=== PATIENT | female | born 1935 | race Caucasian/White ===

== ENCOUNTER → 2016-05-04 | Day surgery (SDC) | payer BC ==
[2016-05-03 14:17] VITALS: BMI 31.0
[~2016-05-04] VITALS: Ht 154.9 cm; Wt 74.1 kg
[~2016-05-04] MED LIST: ADVIN25/60 INH; ASPI-232 PO; ATOR-26 PO; ATROPINE SULFATE 0.1 MG/ML 5ML SYR IV PRN; CALC-20 PO; CYCL0.052 OP; DILT360C17 PO; ELQ25 PO; ETOMIDATE 2 MG/ML 20 ML VIAL IV ONE; EpHEDrine SULFATE INJ 50 MG/ML AMP IV PRN; FENTANYL CITRATE INJ 50 MCG/1 ML 2 ML VIAL IV PRN; FENTANYL CITRATE INJ 50 MCG/1 ML 2 ML VIAL ONE; FRRS300 PO; FURO80TA63 PO; HEPARIN SOD (PORCINE) 1000 UNIT/ML 10 ML VIAL FLUSH ONE; HEPARIN SQ; INSDGI SQ; LEVO112T4 PO; MECL1TAB42 PO; METO50TA16 PO; MIX: 0.5% BUPIVACAINE W/EPI 1:200,000+1%LIDO 50:50 INJ ONE; MRLP17 PO; NTRGSL/4 UT; ONDA8TAB6 PO; ONDANSETRON INJ 2 MG/ML 2 ML VIAL IV PRN; ONDANSETRON INJ 2 MG/ML 2 ML VIAL ONE; OXYC-57 PO; PATIENT'S HEIGHT AND/OR WEIGHT NEEDED SCH; PRLSR20 PO; PROPOFOL IV EMULSION 10 MG/ML 20 ML VIAL IV ONE; SODIUM CHLORIDE 0.9% 1000ML 1,000 ML IV SCH; SPRIN INH; SURGICEL ABSORB HEMOSTAT 2IN X 14IN TOP ONE; VNTHFA/IN INH
[2016-05-04 05:59] VITALS: BP 101/46; PULSE 91; TEMP 36.7; O2SAT 99; Ht 154.9 cm; Wt 74.1 kg
--- NOTE | 2016-05-04 06:03 | History and Physical ---
History & Physical CC: End stage renal disease HPI: Ms. Harrington states that she has had worsening renal function over the past 1-2 years and was advised to have her fistula created for hemodialysis in the near future. She states that her kidneys are currently functioning at 15%. She denies any real complaints at this time and states that she is feeling generally well. She specifically denies headaches, fevers, chills, dizziness, chest pain, shortness of breath, any worse than usual, abdominal pain, nausea, vomiting, dysuria, hematuria, rest pain, claudication, nonhealing wounds or ulcers or other complaints. The ultrasound vein mapping performed of her bilateral upper extremities prior to today's appointment demonstrates usable basilic veins in her right upper extremity. She had a right basilic vein fistula created and now is admitted for transposition. THE PATIENT'S ALLERGIES INCLUDE PIERCE INHIBITORS, SULFA DRUGS AND TETRACYCLINE. Her home medications are reconciled in the chart and include the following: Acetaminophen/hydrocodone, Advair Diskus, apixaban, aspirin, calcium, diltiazem , Feosol, furosemide, Lantus SoloSTAR pen, levothyroxine oral tablets, Lipitor, meclizine, metoprolol, Percocet 5/325, pilocarpine, Prilosec, promethazine, Spiriva, Ventolin and Zofran. Her past medical history is positive for aortic valve stenosis status post aortic valve replacement, coronary artery disease, hypertension, diabetes, NE, carotid artery stenosis, chronic kidney disease stage IV, COPD, hyperlipidemia, paroxysmal atrial fibrillation, vitamin D deficiency, chronic anemia. The patient's past surgical history is positive for transcatheter aortic valve replacement with prosthetic valve, lower extremity angiography, appendectomy, section, cholecystectomy, tonsillectomy, cardiac catheterization, colonoscopy, carotid endarterectomy. FAMILY HISTORY: Positive for diabetes in her brother, father, sister and mother ; heart disease in her father, mother and sister; hypertension in her brother, father, mother and sister; lung cancer in her sister, and stroke in her father. SOCIAL HISTORY: The patient states that she used to smoke 40 cigarettes a day, but has since quit. She quit smoking 20 years ago. REVIEW OF SYSTEMS: Positive for fatigue. She denies fevers, chills or weight loss, abnormal moles or rashes, vision changes or photophobia, ear pain, sinus problems or sore throat, or hemoptysis. She does admit wheezing, chronic cough and chronic shortness of breath. She is on oxygen by nasal cannula. She admits edema of her bilateral lower extremities, but denies orthopnea or chest pain. She denies abdominal pain, nausea, vomiting, diarrhea, constipation, dysuria, hematuria, muscle weakness, headaches, dizziness, numbness or seizures. PHYSICAL EXAMINATION: Her vital signs today were as follows: Blood pressure 104/50 in the left arm, heart rate is 68, oxygen 96% on room air, height of 154 cm, weight of 80 kg. Constitutional: In general, the patient is a chronically ill, frail-appearing elderly female, in no acute distress. She wears oxygen via nasal cannula. Her voice is very hoarse sounding and frail. She is active , alert and oriented x4 with normal recent and remote memory. Her head is normocephalic and atraumatic. Eyes are EOMI. Her ENT exam demonstrates some hearing loss. She does use hearing aids, but hears fine with them in. Her neck is supple and nontender with midline trachea without masses or crepitus. Her lung exam demonstrates no dyspnea with significantly decreased aeration and mild expiratory wheezing. There are no crackles or rales noted. Cardiovascular exam demonstrates a nondisplaced apical impulse. She does have an irregular rhythm. She does have a 2/6 systolic ejection murmur. Her peripheral pulses are full and equal in all extremities unless otherwise noted, specifically they are normal in her carotid, brachial, radial and femoral pulses. Her bilateral extremity distal pulses are +2. She has brisk capillary refill and no sign of distal ischemia. The patient demonstrates no bruits in her carotid, abdominal or femoral area. Her abdomen is soft and nontender with normoactive bowel sounds in all 4 quadrants without guarding or rebound. There is no flank or CVA tenderness. I am unable to appreciate any pulsatile mass. Her musculoskeletal exam demonstrates normal tone and strength for age. Her bilateral upper extremities demonstrate no cyanosis, edema, clubbing, varicosities or ulcerations. There is a good thrill in the right upper extrmeity fistula. Bilateral lower extremities demonstrate +2 edema bilaterally. This is diffuse from the knee down pretibial and pitting. Neurologically, the patient demonstrates grossly intact cranial nerves and grossly intact sensation. ASSESSMENT AND PLAN: End-stage renal disease. Plan: Patient is admitted for transposition of a right upper arm basilic vein arteriovenous fistula. The procedure, risks, benefits and alternatives were discussed at length with the patient. Her family member was present as well. She expressed understanding and agreement to .
--- NOTE | 2016-05-04 07:21 | History & Physical Bridge Note ---
H&P Re-Evaluation Bridge Note: I have examined the patient, reviewed the History & Physical and in the interval since the performance of the History & Physical I have noted the following changes of clinical significance: No changes noted
[2016-05-04 07:27] LABS: BUN/CREATININE RATIO 26.9 (10-20); CALCIUM 8.6 mg/dl (8.5-10.1); CREATININE 2.3 mg/dl (0.60-1.20); POTASSIUM 4.7 mmol/L (3.5-5.1)
[2016-05-04] MEDS: CEFAZOLIN 1000MG/55 ML D5W IV SCH ×2 (07:33→07:56)
--- NOTE | 2016-05-04 09:10 | [facility] Post Operative Brief Note ---
Immediate Operative Summary Operative Date May 04, 2016. Pre-Operative Diagnosis End Stage Renal Disease Post-Operative Diagnosis Same as preoperative Procedure(s) Performed Right Upper Extremity Basilic Vein Transposition Surgeon Dr. Alexander Natural Resource Economist Surgeon(s) Nicol Caba PA-C Estimated Blood Loss 100 Findings good thrill Specimens None per surgeon Anesthesia MAC Complication(s) None Disposition Recovery Room / PACU
--- NOTE | 2016-05-04 09:15 | Discharge Instructions ---
Discharge Instructions Visit Reason for Visit: End Stage Renal Disease Discharge Discharge Diagnosis / Problem: End stage renal disease Discharge Goals Goal(s): Therapeutic intervention Activity Recommendations Activity Limitations: per Instructions/Follow-up section Anesthesia . Post Anesthesia Instructions: If you have had General Anesthesia or IV Sedation: * Do not drive today. * Resume driving when surgeon permits. * Do not make important decisions or sign legal documents today. * Call surgeon for: 1. Temperature elevations greater than 101 degrees F. 2. Uncontrollable pain. 3. Excessive bleeding. 4. Persistent nausea and vomiting. 5. Medication intolerance (nausea, vomiting or rash). * For nausea and vomiting use only clear liquids such as: tea, soda, bouillon until nausea subsides, then gradually increase diet as tolerated. * If you have any concerns or questions, call your surgeon's office. If physician is unavailable and it is an emergency, call 911 or go to the nearest emergency room. . Instructions / Follow-Up Instructions / Follow-Up Call [phone] to schedule a follow up appointment if one not already scheduled. ACTIVITY RECOMMENDATIONS: See Above SPECIAL CARE INSTRUCTIONS: Call your doctor if: * Temperature above 101 degrees * Pain not relieved by pain medicine ordered * There is increased drainage or redness from any incision * You have any unanswered questions or concerns. Diet Recommendations Recommended Home Diet: resume previous diet Procedures Procedures Performed: Right Upper Extremity Basilic Vein Transposition Pending Studies Studies pending at discharge: no Medical Emergencies . Who to Call and When: Medical Emergencies: If at any time you feel your situation is an emergency, please call 911 immediately. . Non-Emergent Contact Non-Emergency issues call your: Surgeon . . "Provider Documentation" section prepared by Lalo Alexander.
--- NOTE | 2016-05-04 09:57 | Anesthesiology Progress Note ---
Anesthesia Post Op Note Date & Time May 04, 2016 at 09:56 Vital Signs Pain Intensity: 0 Vital Signs Past 12 Hours Date Time Temp Pulse Resp B/P Pulse Ox O2 Delivery O2 Flow Rate FiO2 05/04/16 09:50 79 20 108/37 96 Nasal Cannula 4 05/04/16 09:40 78 20 113/43 95 Nasal Cannula 4 05/04/16 09:36 36.2 85 16 113/53 97 Nasal Cannula 4 05/04/16 05:59 36.7 91 20 101/46 99 Nasal Cannula 2 Notes Mental Status: alert / awake / arousable, participated in evaluation Pt Amnestic to Procedure: Yes Nausea / Vomiting: adequately controlled Pain: adequately controlled Airway Patency, RR, SpO2: stable & adequate BP & HR: stable & adequate Hydration State: stable & adequate Anesthetic Complications: no major complications apparent
--- NOTE | 2016-05-04 10:07 | OPERATIVE REPORT ---
DATE OF OPERATION: 05/04/2016 PREOPERATIVE DIAGNOSIS: End-stage renal disease post-basilic vein fistula creation. POSTOPERATIVE DIAGNOSIS: Same. PROCEDURE: Right basilic vein transposition second stage. SURGEON: Dr. Alexander. CRINKLING MACHINE OPERATOR: Nicol Benavides PA-C. ANESTHETIC: MAC. PROCEDURE INDICATIONS: The patient is an 81-year-old female who had a right upper extremity basilic vein transposition done. The vein has matured nicely. She is here for second stage transposition. She understood the risks, options and benefits and agreed to go ahead with this procedure. PROCEDURE: The patient was taken to the operating room and placed in supine position. After the right arm was prepped and draped in a sterile manner, local anesthetic was administered. Long longitudinal incision was made coursing along the basilic vein from the old incision at the antecubital crease up to the anterior axillary line. The basilic vein was identified at the antecubital fossa. It was followed upward. There were nerves crossing which were preserved. Dissection was carried up to the basilic junction. Once this was identified, the side branches were all ligated. It was decided to transect the vein just distal to the arterial anastomosis. This was done after the vein was clamped with DeBakey clamps. A subcutaneous tunnel was then made. Using the tunneler the vein was passed through the tunnel. Care was taken not to twist or kink the vein. Once it was passed through it was checked by dilating it. It dilated up nicely. No kinks were seen. The vein was then anastomosed to the stump of the vein from the arterial anastomosis in an end-to-end fashion with a running 7-0 Prolene suture. Once this was completed, clamps were removed. Excellent flow was seen through the fistula. Adequate hemostasis was seen of the wounds. The tunnel was slightly repositioned suturing the muscle fascia for the subcutaneous layer in the upper part of the arm. This extended the tunnel slightly. The wound was then closed in the usual fashion using a running 3-0 Vicryl suture for the subcutaneous layer and keturah for the skin. Sterile dressings were then applied to the wound. The patient left the operating room in good condition and tolerated the procedure well. Nicol Benavides assisted due to lack of resident availability. I attest to the content of the Intraoperative Record and any orders documented therein. Any exceptions are noted below. MTDD
[2016-05-04 10:10] VITALS: BP 119/42; PULSE 68; TEMP 36.6; O2SAT 93
[2016-05-04 10:43] VITALS: BP 112/51; PULSE 76; TEMP 36.5; O2SAT 93
[2016-05-04 11:13] VITALS: BP 118/51; PULSE 74; TEMP 36.5; O2SAT 95
--- NOTE | 2016-05-04 15:32 | Progress Note ---
Progress Note I assisted Dr Alexander with Maria Antonia Harrington's Right Upper Extremity Basilic Vein Transposition on 05/04/16, d/t lack of resident availability.
== END | disposition home or self-care (01) ==
LOC: C.ACU 05:19
PROVIDERS: ATTEND Surgery Vascular Surgery
DX: N18.6 End stage renal disease (principal); E11.22 Type 2 diabetes mellitus with diabetic chronic kidney disease; I12.0 Hypertensive chronic kidney disease with stage 5 chronic kidney disease or end stage renal disease; J44.9 Chronic obstructive pulmonary disease, unspecified; I25.10 Atherosclerotic heart disease of native coronary artery without angina pectoris; E78.5 Hyperlipidemia, unspecified; I48.0 Paroxysmal atrial fibrillation; Z88.2 Allergy status to sulfonamides; Z88.1 Allergy status to other antibiotic agents; Z95.2 Presence of prosthetic heart valve; Z79.82 Long term (current) use of aspirin; Z87.891 Personal history of nicotine dependence; Z83.3 Family history of diabetes mellitus; Z82.49 Family history of ischemic heart disease and other diseases of the circulatory system; Z80.1 Family history of malignant neoplasm of trachea, bronchus and lung; Z82.3 Family history of stroke

== ENCOUNTER → 2016-06-24 | Outpatient (CLI) | payer BC ==
[~2016-06-24] MED LIST changes: -ATROPINE SULFATE 0.1 MG/ML 5ML SYR IV PRN; -ETOMIDATE 2 MG/ML 20 ML VIAL IV ONE; -EpHEDrine SULFATE INJ 50 MG/ML AMP IV PRN; -FENTANYL CITRATE INJ 50 MCG/1 ML 2 ML VIAL IV PRN; -FENTANYL CITRATE INJ 50 MCG/1 ML 2 ML VIAL ONE; -HEPARIN SOD (PORCINE) 1000 UNIT/ML 10 ML VIAL FLUSH ONE; -MIX: 0.5% BUPIVACAINE W/EPI 1:200,000+1%LIDO 50:50 INJ ONE; -ONDANSETRON INJ 2 MG/ML 2 ML VIAL IV PRN; -ONDANSETRON INJ 2 MG/ML 2 ML VIAL ONE; -PATIENT'S HEIGHT AND/OR WEIGHT NEEDED SCH; -PROPOFOL IV EMULSION 10 MG/ML 20 ML VIAL IV ONE; -SODIUM CHLORIDE 0.9% 1000ML 1,000 ML IV SCH; -SURGICEL ABSORB HEMOSTAT 2IN X 14IN TOP ONE
[2016-06-24 13:31] LABS: HEMATOCRIT 35.1 % (37-47); MEAN CELL VOLUME 93.9 fL (80-100); MEAN CORPUSCULAR HEMOGLOBIN 28.9 pg (25-34); MEAN CORPUSCULAR HGB CONC 30.8 g/dl (32-36); PLATELET COUNT 161 K/uL (130-400); RED BLOOD COUNT 3.74 M/uL (4.2-5.4); WHITE BLOOD COUNT 6.38 K/uL (4.8-10.8)
[2016-06-24 13:47] LABS: ALT/SGPT 18 U/L (12-78); BLOOD UREA NITROGEN 78 mg/dl (7-18); BUN/CREATININE RATIO 28.9 (10-20); CALCIUM 9.4 mg/dl (8.5-10.1); CARBON DIOXIDE 37 mmol/L (21-32); CHLORIDE 97 mmol/L (98-107); GLUCOSE 153 mg/dl (70-99); SODIUM 139 mmol/L (136-145)
[2016-06-24 13:50] LABS: ALB/GLOB RATIO 1.1 (0.9-2); ALKALINE PHOSPHATASE 51 U/L (45-117); AST/SGOT 17 U/L (15-37)
== END | disposition home or self-care (01) ==
LOC: C.LABMFLN 07:48
PROVIDERS: ATTEND Internal Medicine Nephrology
DX: N18.4 Chronic kidney disease, stage 4 (severe) (principal)

== ENCOUNTER → 2016-07-01 | Outpatient (CLI) | payer BC ==
[2016-07-01 09:13] LABS: PATIENT HEIGHT 154.9 cm
[2016-07-01 13:15] LABS: MEAN CELL VOLUME 92.5 fL (80-100); MEAN CORPUSCULAR HGB CONC 31.4 g/dl (32-36); MEAN PLATELET VOLUME 11.4 fL (7.4-10.4); PLATELET COUNT 171 K/uL (130-400); RED BLOOD COUNT 3.89 M/uL (4.2-5.4); WHITE BLOOD COUNT 4.35 K/uL (4.8-10.8)
[2016-07-01 13:29] LABS: BUN/CREATININE RATIO 36.4 (10-20); CALCIUM 9.9 mg/dl (8.5-10.1); CREATININE 2.7 mg/dl (0.60-1.20); PHOSPHORUS 4.7 mg/dl (2.5-4.9); POTASSIUM 3.7 mmol/L (3.5-5.1)
[2016-07-01 13:34] LABS: HEPATITIS B AB NEG
[2016-07-01 13:44] LABS: URINE TOTAL PROTEIN 5.8 mg/dl (0-11.9)
[2016-07-01 13:56] LABS: CREATININE 2.7 mg/dl (0.6-1.2); URINE TOTAL PROTEIN CALC 60.9 mg/24 hr (0-149.1)
== END | disposition home or self-care (01) ==
LOC: C.LABMFLN 07:44
PROVIDERS: ATTEND Internal Medicine Nephrology
DX: I10 Essential (primary) hypertension (principal); N18.4 Chronic kidney disease, stage 4 (severe); E55.9 Vitamin D deficiency, unspecified; D64.9 Anemia, unspecified

== ENCOUNTER → 2016-08-03 | Outpatient (CLI) | payer BC ==
[2016-08-03 13:31] LABS: ALT/SGPT 17 U/L (12-78); BLOOD UREA NITROGEN 135 mg/dl (7-18); BUN/CREATININE RATIO 50.1 (10-20); CALCIUM 9.6 mg/dl (8.5-10.1); CARBON DIOXIDE 39 mmol/L (21-32); CHLORIDE 94 mmol/L (98-107); CHOLESTEROL 143 mg/dl (0-200); GLUCOSE 82 mg/dl (70-99); POTASSIUM 3.6 mmol/L (3.5-5.1); SODIUM 143 mmol/L (136-145)
[2016-08-03 13:36] LABS: ESTIMATED AVERAGE GLUCOSE 105 mg/dl; HA1C FLAG Normal (Normal)
[2016-08-03 13:42] LABS: ALB/GLOB RATIO 1.2 (0.9-2); ALKALINE PHOSPHATASE 48 U/L (45-117); AST/SGOT 13 U/L (15-37); CHOLESTEROL/HDL RATIO 3.8; HDL CHOLESTEROL 38 mg/dl; LDL CHOLESTEROL CALCULATED 72 mg/dl; PHOSPHORUS 4.9 mg/dl (2.5-4.9); TRIGLYCERIDES 163 mg/dl (0-150); VERY LOW DENSITY LIPOPROT CALC 33 mg/dl
== END | disposition home or self-care (01) ==
LOC: C.LABMFLN 07:41
PROVIDERS: ATTEND Physician Assistant Medical
DX: I12.9 Hypertensive chronic kidney disease with stage 1 through stage 4 chronic kidney disease, or unspecified chronic kidney disease (principal); E11.22 Type 2 diabetes mellitus with diabetic chronic kidney disease; N18.4 Chronic kidney disease, stage 4 (severe); E78.2 Mixed hyperlipidemia; E03.9 Hypothyroidism, unspecified; Z79.4 Long term (current) use of insulin

== ENCOUNTER → 2016-08-29 | Outpatient (CLI) | payer BC ==
[2016-08-29 13:14] LABS: HEMATOCRIT 33.7 % (37-47); MEAN CELL VOLUME 93.9 fL (80-100); MEAN CORPUSCULAR HEMOGLOBIN 28.7 pg (25-34); MEAN CORPUSCULAR HGB CONC 30.6 g/dl (32-36); MEAN PLATELET VOLUME 11.5 fL (7.4-10.4); PLATELET COUNT 149 K/uL (130-400); RED BLOOD COUNT 3.59 M/uL (4.2-5.4); WHITE BLOOD COUNT 5.13 K/uL (4.8-10.8)
[2016-08-29 13:35] LABS: CALCIUM 10.2 mg/dl (8.5-10.1)
[2016-08-29 13:40] LABS: URINE PROTIEN/CREAT RATIO 0.1 (0-0.2); URINE TOTAL PROTEIN 6.8 mg/dl (0-11.9)
[2016-08-29 13:43] LABS: BLOOD UREA NITROGEN 126 mg/dl (7-18); BUN/CREATININE RATIO 50.4 (10-20); CARBON DIOXIDE 36 mmol/L (21-32); CHLORIDE 98 mmol/L (98-107); GLUCOSE 140 mg/dl (70-99); MAGNESIUM 2.5 mg/dl (1.8-2.4); POTASSIUM 3.6 mmol/L (3.5-5.1); SODIUM 143 mmol/L (136-145)
[2016-08-29 13:45] LABS: URINE APPEARANCE CLEAR (CLEAR); URINE BILIRUBIN NEG (NEG); URINE COLOR YELLOW; URINE NITRITE NEG (NEG); URINE PH 6.5 (4.5-7.5); UROBILINOGEN NEG (NEG)
[2016-08-29 13:52] LABS: MANUAL MICROSCOPIC REQUIRED? NO; REVIEW REQ? NO
== END | disposition home or self-care (01) ==
LOC: C.LABMFLN 09:03
PROVIDERS: ATTEND Internal Medicine Nephrology
DX: I12.9 Hypertensive chronic kidney disease with stage 1 through stage 4 chronic kidney disease, or unspecified chronic kidney disease (principal); E11.22 Type 2 diabetes mellitus with diabetic chronic kidney disease; N18.4 Chronic kidney disease, stage 4 (severe); E55.9 Vitamin D deficiency, unspecified; D64.9 Anemia, unspecified

== ENCOUNTER → 2016-11-28 | Outpatient (CLI) | payer BC ==
[~2016-11-28] MED LIST changes: -OXYC-57 PO
[2016-11-28 13:24] LABS: HEMATOCRIT 34.1 % (37-47); MEAN CELL VOLUME 90.5 fL (80-100); MEAN CORPUSCULAR HEMOGLOBIN 28.1 pg (25-34); MEAN CORPUSCULAR HGB CONC 31.1 g/dl (32-36); MEAN PLATELET VOLUME 11.3 fL (7.4-10.4); PLATELET COUNT 208 K/uL (130-400); RED BLOOD COUNT 3.77 M/uL (4.2-5.4); WHITE BLOOD COUNT 8.11 K/uL (4.8-10.8)
[2016-11-28 13:44] LABS: URINE TOTAL PROTEIN < 5.0 mg/dl (0-11.9)
[2016-11-28 13:47] LABS: BLOOD UREA NITROGEN 95 mg/dl (7-18); BUN/CREATININE RATIO 37.9 (10-20); CARBON DIOXIDE 35 mmol/L (21-32); CHLORIDE 102 mmol/L (98-107); FERRITIN 85.8 ng/ml (8.0-388.0); GLUCOSE 38 mg/dl (70-99); PHOSPHORUS 3.6 mg/dl (2.5-4.9); POTASSIUM 3.5 mmol/L (3.5-5.1); SODIUM 145 mmol/L (136-145); TOTAL IRON BINDING CAPACITY 244 mcg/dl (250-450)
[2016-11-28 14:12] LABS: URINE APPEARANCE CLEAR (CLEAR); URINE BILIRUBIN NEG (NEG); URINE COLOR YELLOW; URINE EPITHELIAL CELL AUTO 0-5 /lpf (0-5); URINE NITRITE NEG (NEG); URINE SPECIFIC GRAVITY 1.011 (1.000-1.030); UROBILINOGEN NEG (NEG)
[2016-11-28 14:20] LABS: MANUAL MICROSCOPIC REQUIRED? NO; REVIEW REQ? NO
== END | disposition home or self-care (01) ==
LOC: C.LABMFLN 12:53
PROVIDERS: ATTEND Internal Medicine Nephrology
DX: D64.9 Anemia, unspecified (principal); N18.4 Chronic kidney disease, stage 4 (severe); E55.9 Vitamin D deficiency, unspecified; I12.9 Hypertensive chronic kidney disease with stage 1 through stage 4 chronic kidney disease, or unspecified chronic kidney disease

== ENCOUNTER → 2017-04-14 | Outpatient (CLI) | payer BC ==
[2017-04-14 13:00] LABS: URINE APPEARANCE CLEAR (CLEAR); URINE BILIRUBIN NEG (NEG); URINE COLOR YELLOW; URINE NITRITE NEG (NEG); URINE SPECIFIC GRAVITY 1.016 (1.000-1.030); UROBILINOGEN NEG (NEG)
[2017-04-14 13:01] LABS: MANUAL MICROSCOPIC REQUIRED? NO; REVIEW REQ? NO
[2017-04-14 13:03] LABS: BLOOD UREA NITROGEN 128 mg/dl (7-18); BUN/CREATININE RATIO 49.9 (10-20); CALCIUM 8.9 mg/dl (8.5-10.1); CARBON DIOXIDE 30 mmol/L (21-32); CHLORIDE 103 mmol/L (98-107); CREATININE 2.56 mg/dl (0.60-1.20); GLUCOSE 110 mg/dl (70-99); PHOSPHORUS 3.8 mg/dl (2.5-4.9); POTASSIUM 3.5 mmol/L (3.5-5.1); SODIUM 140 mmol/L (136-145)
[2017-04-14 13:04] LABS: HEMATOCRIT 34.5 % (37-47); MEAN CELL VOLUME 95.6 fL (80-100); MEAN CORPUSCULAR HEMOGLOBIN 29.9 pg (25-34); MEAN CORPUSCULAR HGB CONC 31.3 g/dl (32-36); MEAN PLATELET VOLUME 11.4 fL (7.4-10.4); PLATELET COUNT 157 K/uL (130-400); RED BLOOD COUNT 3.61 M/uL (4.2-5.4); WHITE BLOOD COUNT 7.42 K/uL (4.8-10.8)
[2017-04-14 13:06] LABS: CREATININE, URINE 24.7 mg/dl; URINE TOTAL PROTEIN < 5.0 mg/dl (0-11.9)
== END | disposition home or self-care (01) ==
LOC: C.LABMFLN 08:20
PROVIDERS: ATTEND Internal Medicine Nephrology
DX: I12.9 Hypertensive chronic kidney disease with stage 1 through stage 4 chronic kidney disease, or unspecified chronic kidney disease (principal); N18.4 Chronic kidney disease, stage 4 (severe); D64.9 Anemia, unspecified; E55.9 Vitamin D deficiency, unspecified